=== PATIENT | male | born 1955 | race Caucasian/White ===

== ENCOUNTER 2025-04-18 11:18 | Outpatient (AMB) | payer MEDICARE, SELFPAY ==
--- NOTE | 2025-04-18 11:43 | A.PHYSOV ---
Intake Visit Reasons: neck pain Intake Note: Patient is a 69 year old male here with low back pain after slip on ice. 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 The patient reports persistent neck pain that extends into the shoulder, accompanied by a cracking sound during neck movement, which temporarily restricts motion. X-rays have revealed the presence of osteophytes and arthritis in the cervical spine, and an MRI has been suggested for further evaluation as the ablation recently underwent x-ray of the cervical spine and completed physician directed home exercise plan without relief. He has a pain level today of 7/10. The patient experienced a fall while stepping down stairs, resulting in hip pain localized to the buttock area, without radiation to the leg. The pain is exacerbated by certain movements, such as bending forward, and is described as tender upon palpation. The patient has a history of receiving prednisone for pain management, which was effective in the past, and is considering its use again for current symptoms. Patient's last epidural injection was L5-S1 on 01/20/2025 which provided 85% reduction of his pain. Pain Description - Onset: Persistent neck pain extending into the shoulder - Quality: Cracking sound during neck movement, temporarily restricting motion - Location: Neck and shoulder, hip pain localized to the buttock - Exacerbating factors: Bending forward increases hip pain - Relieving factors: Previous use of prednisone was effective Procedures: Right subacromial injection 06/15/2023 L5-S1 HEAVEN 01/20/2025 85% reduction of his pain PFSH Surgical History H/O wrist surgery H/O foot surgery Hx of tonsillectomy Social History Alcohol intake: current Alcohol intake frequency: holidays/special occasions only Patient Tobacco Use Status: Never used Tobacco Use of substances other than those prescribed or required for medical reasons: Yes Substance Use Type: Marijuana Current occupational status: retired Review of Systems Narrative Review of Systems - Musculoskeletal: Reports neck pain with cracking sound, hip pain without radiation to the leg - Neurological: Denies radiation of pain to the leg Physical Exam Exam Exam: Physical Exam Cervical Spine: Examination of the cervical spine, there is no visible swelling or deformity. He is tender to the right paraspinal musculature. There is crepitance with cervical spine motion. He has limited at end range throughout. Special Tests: Axial Compression test: Negative Spurlings test: Negative Lhermitte's sign is Negative Upper Extremities: Full range of motion bilateral upper extremities. 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 Neuro: Sensation: Intact to upper extremities bilateral to light touch Strength C5 (Elbow Flexion): 5/5 on the left and 5/5 on the right. C6 (Elbow Ext): 5/5 on the left and 5/5 on the right. C7 (Elbow Ext): 5/5 on the left and 5/5 on the right. C8 (Finger Flex): 5/5 on the left and 5/5 on the right. T1 (Finger Abd/Add): 5/5 on the left and 5/5 on the right. DTR: C5 (Biceps): Left 2 Right 2 C6 (Brachioradialis): Left 2 Right 2 C7 (Triceps): Left 2 Right 2 Petersen sign: Negative No pathologic clonus. No involuntary movement. Lumbar Spine: Examination of his lumbar spine, there is no visible swelling or deformity. There is bruising to the left oblique. He is tender over this area. Full range motion of his lumbar spine. He does have an increase in pain with facet loading. Special Tests: Lhermittes sign was negative Heel Toe walk is normal Left straight leg raise: Negative Right straight leg raise: Negative Special tests Vianney test is negative Ganslen's test is negative SI Joint compression test negative Scar test negative Piriformis stretch is negative Lower Extremities: Full range of motion bilateral lower extremities. No calf pain or edema. Neuro: Sensation: Intact to lower extremities bilaterally Strength L2 (Psoas): 5/5 on the left and 5/5 on the right. L3 (Quads): 5/5 on the left and 5/5 on the right. L4 (Ant tibialis): 5/5 on the left and 5/5 on the right. L5 (EHL) 5/5 on the left and 5/5 on the right. S1 (Gastroc): 5/5 on the left and 5/5 on the right. DTR L4: (Patellar) Left 2 Right 2 S1: (Achilles) Left 2 Right 2 Babinski Downgoing No pathologic clonus. No involuntary movement. Assessment & Plan Assessment & Plan (1) Cervicalgia: Code(s): M54.2 - Cervicalgia Category: Medical (2) Cervical radiculopathy: Code(s): M54.12 - Radiculopathy, cervical region Category: Medical (3) Lumbar contusion: Code(s): S30.0XXA - Contusion of lower back and pelvis, initial encounter Category: Medical Qualifiers: Encounter type: initial encounter Qualified Code(s): S30.0XXA - Contusion of lower back and pelvis, initial encounter (4) Lumbar radiculopathy: Code(s): M54.16 - Radiculopathy, lumbar region Category: Medical Plan Pain Management - Affect: Pain impacts daily activities, causing discomfort during movement - Analgesia: Considering prednisone for pain relief, previously effective - Activities of Daily Living: Pain restricts certain movements, such as bending forward Plan Patient was informed and verbally consented to the use of an ambient scribe for clinic note documentation during this visit. 1. Osteophytes In The Cervical Spine The patient has osteophytes in the cervical spine, contributing to neck pain and restricted movement. An MRI of the cervical spine is planned to further evaluate the extent of the condition. 2. Cervical Spine Arthritis Cervical spine arthritis is present, as indicated by x-ray findings. Patient has failed conservative treatment by completing 6 weeks of physician directed home exercise plan without relief. He finds that his symptoms limit his ability to perform his activities of daily living. X-ray of the cervical spine does confirm moderate degenerative disc disease. At this point I recommend MRI of the cervical spine for further evaluation and treatment. Follow-up post MRI. I will prescribe prednisone taper to decrease inflammation. He will not take any anti-inflammatories with the prednisone. 3. Recent Fall With Hip Pain The patient experienced a fall resulting in hip pain localized to the buttock area. The pain is currently managed conservatively, with a recommendation to avoid anti-inflammatory medications once the prednisone as complete. If his symptoms do not improve over the next month or so we may consider updating epidural injection. Orders: Orders MR cervical spine wo con Today M54.12 - Radiculopathy, cervical region Medications: New prednisone 3 pill po for 3 days, 2 pills po for 3 days, 1 pill po for 3 days 20 mg PO DAILY 9 tabs 0RF 9 days M54.2 - Cervicalgia, S30.0XXA - Contusion of lower back and pelvis, initial encounter Coding Level of Care Code Tele Est Pt Level 4 (75063) Diagnoses Cervicalgia M54.2 Cervical radiculopathy M54.12 Lumbar contusion, initial encounter S30.0XXA Encounter type: initial encounter Lumbar radiculopathy M54.16
--- OUTSIDE RECORDS SUMMARY | 2025-04-18 15:00 | XMS_ITS ---
Author Name [facility] Organization Unknown Care Team Organization Name Specialty Phone Email Start Date End Da te [facility] 01/11/2025 [facility] 04/01/2022 01/11/2024
--- OUTSIDE RECORDS SUMMARY | 2025-04-18 15:00 | XMS_ITS | Clinical Summary ---
Author Organization [facility] [address] [place] [address] [place] [address] [place] [address] Phone Care Team Providers [facility] [employer] [employer] Name Role Phone Sai Collins MD Primary Care Provider [phone] Allergies No known active allergies Medications diphenhydramine HCl (BENADRYL ORAL) diphenhydrAMIN E-PSE-APAP (BENADRYL COLD OR) Take 38 mg by mouth as needed. Active amLODIPine (NORVASC) 2.5 mg tabletIndications: Vitamin D insufficiency,Hype rlipidemia, unspecified hyperlipidemia type,Essential hypertension,Predi abetes Take 1 tablet (2.5 mg total) by mouth 1 (one) time each day. Take along with Amlodipine 5 mg. Once daily for a total of 7.5 mg by mouth daily 90 each 3 5 026 Active amLODIPine (NORVASC) 5 mg tabletIndications: Vitamin D insufficiency,Hype rlipidemia, unspecified hyperlipidemia type,Essential hypertension,Predi abetes Take 1 tablet (5 mg total) by mouth 1 (one) time each day. Take with 2.5mg tablet for total of 7.5mg. 90 tablet 3 5 Active atorvastatin (LIPITOR) 40 mg tablet TAKE 1 TABLET BY MOUTH 1 TIME EACH DAY. 90 tablet 1 5 Active lisinopril (PRINIVIL,ZESTRIL) 40 mg tablet Take 1 tablet (40 mg total) by mouth 1 (one) time each day. 90 tablet 1 Active Active Problems Problem Noted Date Diagnosed Date OA (osteoarthritis) 02/22/2024 Class 1 obesity due to exces s calories with serious comorbidity and body mass index (BMI) of 34.0 to 34.9 in adult 02/22/2024 Erectile dysfunction 09/16/2021 Overview (02/22/2024): Sees [facility] Per 09/13/21 Urology note: sildenafil increased to 100mg with daily low dose cialis 5mg Vitamin D insufficiency 12/13/2020 Prediabetes 12/05/2020 Lumbar spondylosis 09/12/2020 Essential hypertension 05/06/2017 Assessment & Plan (04/05/2024 2:07 PM EST): Orders: Comprehensive metabolic panel; Future Refilled amlodipine and lisinopril. Pt will continue statin for HLD. Lipid panel UTD. Will follow lFTs. Degenerative disc disease, lumbar 03/17/2017 Overview (02/22/2024): Mild, lower lumbar 06/2008. Hips bilaterally 2009. Hyperlipidemia 03/17/2017 Encounters Date Type Department Care Team Description 02/07/2025 9:45 AM EDT - 02/07/2025 11:59 PM EDT Hospital Encounter [address] [phone] Cervicalgia Discharge Disposition: Home or Self Care 02/07/2025 9:30 AM EDT Office Visit Adult Medicine [address] [phone] Sai Collins MD Prediabetes (Primary Dx); Essential hypertension; Hyperlipidemia, unspecified hyperlipidemia type; Vitamin D insufficiency; Degeneration of intervertebral disc of lumbar region with discogenic back pain; Cervical spine disease from Last 3 Months Immunizations Immunization Administration Dates Next Due Influenza trivalent, 0.5mL ( Fluzone High-dose) 65yo and older 03/23/2023,03/18/2022,03/18/2021 Influenza, Unspecified 12/29/2023 Moderna SARS-CoV-2 COVID-19, mRNA, LNP-S, preservative free 03/24/2022 Pfizer SARS-CoV-2 COVID-19, mRNA, LNP-S, preservative free 04/30/2021 Pneumococcal conjugate 13 va lent (Prevnar 13, PCV13) 2mo and older 03/18/2022 Pneumococcal polysaccharide 23 valent (Pneumovax 23) 2yo and older 12/04/2020 Tdap Tetanus diptheria acell ular pertussis (Boostrix; Adacel) 7yo and older 02/20/2017 Zoster recombinant (Shingrix ) 19yo and older 12/29/2023 Surgical History Surgery Date Site/Laterality Comments FOOT SURGERY Right PROCEDURE: HISTORICAL FOOT SURGERY WRIST SURGERY 09/2011 Left PROCEDURE: HISTORICAL WRIST SURGERY; COMMENT: Advanced arthritis, L wrist arthrodesis, Bank cancellous bone graft, removal of silicone scaphoid implant. TONSILLECTOMY PROCEDURE: HISTORICAL TONSILLECTOMY COLONOSCOPY 05/04/2017 PROCEDURE: HISTORICAL COLONOSCOPY; COMMENT: normal screening exam. Medical History Medical History Date Comments OA (osteoarthritis) DX:OA (osteo arthritis) History of stomach ulcers DX:His tory of stomach ulcers; COMMENT: sensitivity to aspirin Hyperlipidemia 03/17/2017 DX:Hyperlipidemi a Degenerative disc disease 03/17/2017 DX:Deg enerative disc disease; COMMENT: Mild, lower lumbar 06/2008. Hips bilaterally 2009. Essential hypertension 05/06/2017 DX:Essent ial hypertension Class 1 obesity due to exces s calories with serious comorbidity and body mass index (BMI) of 34.0 to 34.9 in adult 12/07/2018 DX:Class 1 obesit y due to excess calories with serious comorbidity and body mass index (BMI) of 34.0 to 34.9 in adult Social History Tobacco Use Types Packs/Day Years Used Date Smoking Tobacco: Former Smokeless Tobacco: Never Tobacco Cessation:Counseling Given: Not Answered Alcohol Use Standard Drinks/Week Comments Not Currently 0 (1 standard drink = 0.6 oz pur e alcohol) Sex and Gender Information Value Date Recorded Sex Assigned at Not on file Legal Sex Male 9:52 PM EST Gender Identity Not on file Sexual Orientation Not on file Obstetrics History Last Filed Vital Signs Vital Sign Reading Time Taken Comments Blood Pressure 136/72 02/07/2025 9:31 AM EDT Pulse 62 02/07/2025 9:31 AM EDT Temperature 36.6 C (97.9 F) 02/07/2025 9:30 AM EDT Respiratory Rate 16 02/07/2025 9:30 AM EDT Oxygen Saturation 98% 10/03/2024 9:28 AM EDT Inhaled Oxygen Concentration - - Weight 103 kg (226 lb) 02/07/2025 9:30 AM EDT Height 172.7 cm (5' 8 ) 10/03/2024 9:28 AM EDT Body Mass Index 34.36 10/03/2024 9:28 AM EDT Plan of Treatment Upcoming Encounters Date Type Department Care Team (Late st Contact Info) Description 07/11/2025 9:45 AM EST [place] [facility] [place] [address] [place] [address] Sai Collins MD [address] [place] [address] Health Maintenance Due Date Last Done Comments Abdominal Aortic Aneurysm (AAA) Screen 05/03/2022 Falls Risk Assessment 05/03/2022 Social Influencers of Health Screening 05/03/2022 Depression Screening 05/25/2024 04/03/2024 COVID-19 Vaccine ( season) 2025 03/24/2022, 04/30/2021, 09/03/2020, Additional history exists Influenza Vaccine (#1) 2025 , 03/23/2023, 03/18/2022, Additional history exists Medicare Annual Wellness Visit 04/05/2025 04/05/2024 Hypertension/CHF/CAD Annual BMP Blood Test 12/09/2025 12/09/2024, 05/30/2024, 10/26/2023, Additional history exists DTaP,Tdap,and Td Vaccines (2 - Td or Tdap) 02/20/2027 02/20/2017 Colorectal Cancer Screening: Colonoscopy 05/04/2027 05/04/2017 Cholesterol Screening (Lipid Panel) 12/09/2029 12/09/2024, 10/26/2023, 10/26/2023 RSV Immunization Adult Patients (1 - 1-dose 75+ series) 2030 Hepatitis C Screening Completed 02/24/2017 Pneumococcal Vaccine: 50+ Years Completed 03/18/2022, 12/04/2020 Zoster Vaccines Completed 12/29/2023, 09/21/2022 HIB Vaccines Aged Out No longer eligi ble based on patient's age to complete this topic HPV Vaccines Aged Out No longer eligi ble based on patient's age to complete this topic Hepatitis A Vaccines Aged Out No long er eligible based on patient's age to complete this topic Hepatitis B Vaccines Aged Out No long er eligible based on patient's age to complete this topic IPV Vaccines Aged Out No longer eligi ble based on patient's age to complete this topic MMR Vaccines Aged Out No longer eligi ble based on patient's age to complete this topic Meningococcal ACWY Vaccine Aged Out N o longer eligible based on patient's age to complete this topic Meningococcal B Vaccine Aged Out No l onger eligible based on patient's age to complete this topic RSV Immunization Patients Under 20 months Aged Out No longer eligible based on patient's age to complete this topic Varicella Vaccines Aged Out No longer eligible based on patient's age to complete this topic Procedures Procedure Name Priority Date/Time Associated Diagnosis Comments XR CERVICAL SPINE 4-5 VIEWS Routine 02/07/2025 10:18 AM EDT Cervicalgia COMPREHENSIVE METABOLIC PANEL Routine 12/09/2024 8:32 AM EDT Vitamin D insufficiency Hyperlipidemia, unspecified hyperlipidemia type Essential hypertension Prediabetes LIPID PANEL WITH REFLEX TO DIRECT LDL Routine 12/09/2024 8:32 AM EDT Vitamin D insufficiency Hyperlipidemia, unspecified hyperlipidemia type Essential hypertension Prediabetes HM COLONOSCOPY Routine 05/04/2017 HEPATITIS C SCREENING Routine 02/24/2017 from Last 3 Months or Most Recently Relevant to Health Maintenance Results * XR Cervical Spine 4-5 Views (02/07/2025 10:18 AM EDT) Anatomical Region Laterality Modality Spine, C-spine Radiographic Chel ging 02/07/2025 4:08 PM EDT Impressions 02/07/2025 4:11 PM EDT 1. No fracture or dislocation of the cervical spine. 2. Moderate degenerative changes of the cervical spine. -------- FINAL REPORT -------- Dictated By: Sagrario De Paz Dictated Date: 02/07/2025 16:08 ET Assigned Physician: Sagrario De Paz Reviewed and Electronically Signed By: Sagrario De Paz Signed Date: 02/07/2025 16:11 ET Workstation ID: [id number] Transcribed By: Self Edit Transcribed Date: 02/07/2025 16:08 ET Narrative 02/07/2025 4:11 PM EDT HISTORY: neck pain TECHNIQUE: 4 views of the cervical spine COMPARISON: None FINDINGS: The cervical spine is visualized from C1-C7. Vertebral body height is grossly maintained. Decreased disc height at C4-C5, C5-C6 and C6-C7 with endplate sclerosis. Large anterior osteophytes are present at the mid cervical spine. Moderate neuroforaminal stenosis at the mid cervical spine. Moderate uncovertebral arthropathy is present. The cervical alignment is maintained without spondylolisthesis. No acute fracture or dislocation is seen. There is no prevertebral soft tissue swelling. Procedure Note Sagrario De Paz MD - 02/07/2025 HISTORY: neck pain TECHNIQUE: 4 views of the cervical spine COMPARISON: None FINDINGS: The cervical spine is visualized from C1-C7. Vertebral body height isgrossly maintained. Decreased disc height at C4-C5, C5-C6 and C6-C7 withendplate sclerosis. Large anterior osteophytes are present at the midcervical spine. Moderate neuroforaminal stenosis at the mid cervicalspine. Moderate uncovertebral arthropathy is present. The cervicalalignment is maintained without spondylolisthesis. No acute fracture ordislocation is seen. There is no prevertebral soft tissue swelling. IMPRESSION: 1. No fracture or dislocation of the cervical spine. 2. Moderate degenerative changes of the cervical spine. -------- FINAL REPORT -------- Dictated By: Sagrario De Paz Dictated Date: 02/07/2025 16:08 ET Assigned Physician: Sagrario De Paz Reviewed and Electronically Signed By: Sagrario De Paz Signed Date: 02/07/2025 16:11 ET Workstation ID: [id number] Transcribed By: Self Edit Transcribed Date: 02/07/2025 16:08 ET us Chad BECKER IMG XR PROCEDURES Final Result * Lipid panel with reflex to direct LDL (12/09/2024 8:32 AM EDT) Cholesterol 146 0 - 200 mg/dL LAB CHEMISTRY METHOD 12/09/2024 10:56 AM EDT [facility] Triglycerides 98 0 - 150 mg/dL LAB CHEMISTRY METHOD 12/09/2024 10:56 AM EDT [facility] HDL 44 >=40 mg/dL LAB CHEMISTRY METHOD 12/09/2024 10:56 AM EDT [facility] LDL Calculated 82 0 - 100 mg/dL LAB CHEMISTRY METHOD 12/09/2024 10:56 AM EDT [facility] VLDL Cholesterol Giovany 19.6 mg/dL LAB CHEMISTRY METHOD 12/09/2024 10:56 AM EDT [facility] Non HDL Chol. (LDL+VLDL) 102 <145 mg/dL LAB CHEMISTRY METHOD 12/09/2024 10:56 AM EDT [facility] Chol/HDL Ratio 3.3 0.0 - 4.4 LAB CHEMISTRY METHOD 12/09/2024 10:56 AM EDT [facility] Blood Venous blood specimen / Unknown Venipuncture / Unknown 12/09/2024 8:32 AM EDT 12/09/2024 8:32 AM EDT us Mathew BECKER LAB BLOOD ORDERABLES Fin al Result [facility] [address] [place] [address], [place] [phone] * (ABNORMAL) Comprehensive metabolic panel (12/09/2024 8:32 AM EDT) [facility] Signature Sodium 138 133 - 145 mmol/L LAB CHEMISTRY METHOD 12/09/2024 10:56 AM [facility] Potassium 4.5 3.5 - 5.5 mmol/L LAB CHEMISTRY METHOD 12/09/2024 10:56 AM [facility] Chloride 108 96 - 110 mmol/L LAB CHEMISTRY METHOD 12/09/2024 10:56 AM [facility] CO2 26 21 - 32 mmol/L LAB CHEMISTRY METHOD 12/09/2024 10:56 AM [facility] Anion Gap 4 3 - 11 LAB CHEMISTRY METHOD 12/09/2024 10:56 AM [facility] Glucose 104(H) 70 - 100 mg/dL LAB CHEMISTRY METHOD 12/09/2024 10:56 AM [facility] BUN 18 5 - 25 mg/dL LAB CHEMISTRY METHOD 12/09/2024 10:56 AM [facility] Creatinine 0.87 0.70 - 1.30 mg/dL LAB CHEMISTRY METHOD 12/09/2024 10:56 AM [facility] eGFR 93 >=60 mL/min/1. 73m2 LAB CHEMISTRY METHOD 12/09/2024 10:56 AM [facility] Comment:Calculation based on the Chronic Kidney Disease Epidemiology Collaboration (CKD-EPI) equation refit without adjustment for race. BUN/Creatinine Ratio 20.7 LAB CHEMISTRY METHOD 12/09/2024 10:56 AM [facility] Calcium 8.7 8.5 - 10.5 mg/dL LAB CHEMISTRY METHOD 12/09/2024 10:56 AM [facility] AST (SGOT) 20 10 - 42 unit/L LAB CHEMISTRY METHOD 12/09/2024 10:56 AM [facility] ALT (SGPT) 26 10 - 60 unit/L LAB CHEMISTRY METHOD 12/09/2024 10:56 AM EDT [facility] Alkaline Phosphatase 110 42 - 121 unit/L LAB CHEMISTRY METHOD 12/09/2024 10:56 AM EDT [facility] Total Protein 6.6 6.0 - 8.0 g/dL LAB CHEMISTRY METHOD 12/09/2024 10:56 AM EDT [facility] Albumin 3.7 3.2 - 5.0 g/dL LAB CHEMISTRY METHOD 12/09/2024 10:56 AM EDT [facility] Total Bilirubin 0.3 0.0 - 1.4 mg/dL LAB CHEMISTRY METHOD 12/09/2024 10:56 AM EDT [facility] Blood Venous blood specimen / Unknown Venipuncture / Unknown 12/09/2024 8:32 AM EDT 12/09/2024 8:32 AM EDT Mathew BECKER LAB BLOOD ORDERABLES Fin al Result [facility] [address] [place] [address], * Colonoscopy (05/04/2017) [facility] Colonoscopy no interpretation , abstracted Anatomical Region Laterality Modality Other Historical Provider HEALTH MAINTENANCE Final Result * Hepatitis C Screening (02/24/2017) [facility] Hepatitis C Screening abstracted Historical Provider HEALTH MAINTENANCE Final Result from Last 3 Months or Most Recently Relevant to Health Maintenance Insurance [employer] Care Teams [facility] [employer] Relationship Specialty Start Date End Date Sai Collins MD [address] [place] [address] PCP - General Internal Medicine 03/18/21
== END 2025-04-18 11:58 | disposition home or self-care (01) ==
LOC: HO.HPHYS 11:19
PROVIDERS: PCP Internal Medicine; Visit Provider Physician Assistant
DX: M54.2 Cervicalgia (principal); M54.12 Radiculopathy, cervical region; S30.0XXA Contusion of lower back and pelvis, initial encounter; M54.16 Radiculopathy, lumbar region
CPT/HCPCS: 99214

== ENCOUNTER → 2025-04-18 11:18 | Outpatient (BNVA) | payer MEDICARE, SELFPAY | PROVIDERS: PCP Internal Medicine; Visit Provider Physician Assistant | DX: S30.0XXA Contusion of lower back and pelvis, initial encounter (principal); M25.78 Osteophyte, vertebrae; M47.812 Spondylosis without myelopathy or radiculopathy, cervical region; M54.16 Radiculopathy, lumbar region; W10.9XXA Fall (on) (from) unspecified stairs and steps, initial encounter; Y92.9 Unspecified place or not applicable; Y93.9 Activity, unspecified; Y99.9 Unspecified external cause status | CPT/HCPCS: 99212 ==